=== PATIENT | male | born 1995 | race Caucasian/White ===

== ENCOUNTER 2021-02-01 20:02 | Emergency (ER) | payer BC ==
--- NOTE | 2021-02-01 21:20 | NUR ---
PATIENT WAS CALLED TO BE TRAIGED BUT WAS NOT PRESENT IN THE WAITING ROOM OR OUTSIDE OF ER.
--- NOTE | 2021-02-01 21:30 | NUR ---
PATIENT WAS CALLED TO BE TRAIGED BUT WAS NOT OUTSIDE OF ER.
--- NOTE | 2021-02-01 21:40 | NUR ---
PATIENT WAS CALLED TO BE TRAIGED BUT WAS NOT PRESENT IN THE WAITING ROOM. PATIENT WAS NOT TRIAGED OR SEEN BY [facility].
== END 2021-02-01 21:46 | disposition left against medical advice (07) ==
LOC: ER 20:10
DX: Z53.21 Procedure and treatment not carried out due to patient leaving prior to being seen by health care provider (principal)